=== PATIENT | female | born 1970 | race Caucasian/White ===

== ENCOUNTER 2020-02-07 10:37 | Emergency (ER) | payer OTHER ==
[~2020-02-07] VITALS: Ht 157.5 cm; Wt 100.9 kg
[2020-02-07] MEDS ORDERED: CYMB60CA3 PO (10:43)
[2020-02-07] MEDS ORDERED: ACETAMINOPHEN TAB 650MG DOSE (2X325MG) PO ONE (11:00)
[2020-02-07] MEDS ORDERED: IBUPROFEN 600 MG TAB PO ONE (11:00)
--- NOTE | 2020-02-07 11:50 | REP ---
LEFT ANKLE, FOUR VIEWS: Four views left ankle performed. No acute fracture or dislocation is seen. There is moderate diffuse soft tissue swelling. Oval calcification is smoothly marginated and distal to the medial malleolus, probably representing an old avulsion fraction. The ankle mortise is anatomic. There is mild posterior calcaneal spurring. Old avulsion fracture or accessory ossicle is seen at the dorsal aspect of the navicular bone. IMPRESSION: Moderate soft tissue swelling. No acute fracture or dislocation. Electronically Signed by Gavin Carey MD 02/07/2020 04:57 P
[2020-02-07 12:00] VITALS: BP 154/84
== END 2020-02-07 12:01 | disposition home or self-care (01) ==
LOC: M ED 10:37
DX: S93.402A Sprain of unspecified ligament of left ankle, initial encounter (principal); X50.0XXA Overexertion from strenuous movement or load, initial encounter; Y92.9 Unspecified place or not applicable; M79.7 Fibromyalgia; Z88.8 Allergy status to other drugs, medicaments and biological substances

== ENCOUNTER → 2020-03-06 | Outpatient (REF) | payer OTHER ==
[~2020-03-06] MED LIST: CYMB60CA3 PO
== END ==
LOC: M SFHCWAGY 14:53
PROVIDERS: ATTEND Nurse Practitioner Women's Health
DX: Z01.419 Encounter for gynecological examination (general) (routine) without abnormal findings (principal); Z12.4 Encounter for screening for malignant neoplasm of cervix
CPT/HCPCS: 87624; G0101; G0123

== ENCOUNTER → 2023-03-19 | Outpatient (REF) | payer OTHER ==
[~2023-03-19] MED LIST changes: -CYMB60CA3 PO; +CYMB60CA4 PO
== END ==
LOC: M LAB REF 12:04
PROVIDERS: ATTEND Internal Medicine Gastroenterology
DX: K57.20 Diverticulitis of large intestine with perforation and abscess without bleeding (principal); R19.7 Diarrhea, unspecified

== ENCOUNTER → 2023-08-12 | Day surgery (SDC) | payer OTHER ==
[~2023-08-12] VITALS: Ht 157.5 cm; Wt 112.0 kg
[~2023-08-12] MED LIST changes: +CENT1TAB PO; +FERR324T21 PO; +LIDOCAINE 2% 100MG/5ML SDV (FOR ANES.) As Ordered ONE; +MELO15TA28 PO; +METO1TAB33 PO; +NS 1,000 ML IV ONE; +PREG50CA PO; +VITA200012 PO; +propofoL 200 MG/20 ML VIAL As Ordered ONE
[2023-08-12 10:30] VITALS: TEMP 98
[2023-08-12 10:47] VITALS: BP 113/54; O2SAT 99
== END | disposition home or self-care (01) ==
LOC: M OPP 08:44
PROVIDERS: ATTEND Internal Medicine Gastroenterology
DX: K57.30 Diverticulosis of large intestine without perforation or abscess without bleeding (principal); K64.0 First degree hemorrhoids

== ENCOUNTER → 2025-03-01 | Outpatient (CLI) | payer OTHER ==
[~2025-03-01] MED LIST changes: -LIDOCAINE 2% 100MG/5ML SDV (FOR ANES.) As Ordered ONE; -NS 1,000 ML IV ONE; -PREG50CA PO; +PREG50CA87 PO; +PROHANCE 279.3MG/ML 15ML VIAL ONE; +PROHANCE 279.3MG/ML 5ML VIAL ONE; -propofoL 200 MG/20 ML VIAL As Ordered ONE
== END ==
LOC: M PLAIMG 02-10 12:37
PROVIDERS: ATTEND Physician Assistant
DX: K85.00 Idiopathic acute pancreatitis without necrosis or infection (principal); Z90.49 Acquired absence of other specified parts of digestive tract; N28.1 Cyst of kidney, acquired
CPT/HCPCS: 74183; A9576